=== PATIENT | female | born 1995 | race Caucasian/White ===

== ENCOUNTER → 2016-12-07 | Outpatient (CLI) | payer OTHER | END | disposition home or self-care (01) | LOC: LABWHC1 16:21 | PROVIDERS: ATTEND Obstetrics & Gynecology | DX: N91.2 Amenorrhea, unspecified (principal) | CPT/HCPCS: 36415; 84702 ==

== ENCOUNTER → 2018-06-07 | Outpatient (CLI) | payer OTHER ==
--- NOTE | 2018-06-07 17:17 | BD ---
EXAMINATION TYPE: Axial Bone Density DATE OF EXAM: 06/07/2018 COMPARISON: NONE CLINICAL HISTORY: 22-year-old female screening for osteoporosis Height: 61.5 IN Weight: 112 LBS FRAX RISK QUESTIONS: Current Tobacco Use: YES RISK FACTORS HISTORY OF: Active: YES Take estrogen and/or progesterone medications: PT TAKES DEPO SHOTS How lon YEARS MEDICATIONS: Additional Medications: NONE EXAM MEASUREMENTS: Bone mineral densitometry was performed using the [email or web address] System. Bone mineral density as measured about the Lumbar spine is: ----- L1-L4(G/cm2): 1.171 T Score Values are as follows: ----- L2: -0.1 ----- L3: -0.1 ----- L4: -0.2 ----- L1-L4: -0.1 Bone mineral density BASELINE Bone mineral density about the R hip (g/cm2):0.881 Bone mineral density about the L hip (g/cm2): 0.881 T Score values are as follows: -----R Neck: -1.1 -----L Neck: -1.1 -----R Total: -0.8 -----L Total: -0.9 Bone mineral density BASELINE IMPRESSION: Z score values are utilized given patient's age. Z score values greater than -2 indicate expected debi ne mineral density for patient's age. NOTE: T-SCORE=SD OF THE YOUNG ADULT MEAN.
== END | disposition home or self-care (01) ==
LOC: RADBDWWP 16:18
PROVIDERS: ATTEND Obstetrics & Gynecology
DX: Z13.820 Encounter for screening for osteoporosis (principal); M81.0 Age-related osteoporosis without current pathological fracture; D50.9 Iron deficiency anemia, unspecified; Z78.9 Other specified health status
CPT/HCPCS: 77080

== ENCOUNTER 2019-12-31 21:38 | Emergency (ER) | payer OTHER ==
[2019-12-31 21:47] VITALS: RESP 18
[2019-12-31] MEDS ORDERED: ONDANSETRON 4 MG/2 ML VIAL IVP STA (22:21)
[2019-12-31] MEDS ORDERED: SODIUM CHLORIDE 0.9% 1,000 ML IV STA (22:21)
[2019-12-31] MEDS ORDERED: diphenhydrAMINE 50 MG/ML 1 ML VIAL IVP STA (22:21)
[2019-12-31] MEDS ORDERED: KETOROLAC 30 MG/ML 1 ML VIAL IVP STA (22:21)
--- NOTE | 2019-12-31 22:56 | ED ---
Headache HPI - General Chief Complaint: Headache Stated Complaint: Migraine Time Seen by Provider: 12/31/19 21:52 Mode of arrival: ambulatory Limitations: no limitations - History of Present Illness Initial Comments: Patient is a 24-year-old female, with past medical history of migraines, presenting to the emergency Department with complaints of a headache that started approximately 11:30 this morning. Patient states she has tried to take naproxen as well as Motrin for her headache but her symptoms have been worsening. She admits to photophobia as well as nausea. She denies fever, chills, dizziness, blurry vision. She denies any numbness and tingling into her upper or lower extremities. She states this feels similar to her previous migraines. She has no other complaints at this time. Upon arrival to the ER her vital signs are stable. - Related Data Home Medications Medication Instructions Recorded Confirmed Citalopram Hydrobromide [CeleXA] 40 mg PO DAILY 07/24/15 07/25/15 Allergies Allergy/AdvReac Type Severity Reaction Status Date / Time No Known Allergies Allergy Verified 12/31/19 21:45 Review of Systems ROS Statement: Those systems with pertinent positive or pertinent negative responses have been documented in the HPI. ROS Other: All systems not noted in ROS Statement are negative. Past Medical History Past Medical History: Asthma Additional Past Medical History / Comment(s): HX MIGRAINE History of Any Multi-Drug Resistant Organisms: None Reported Past Surgical History: No Surgical Hx Reported Additional Past Surgical History / Comment(s): tubes placed in ears at ages [age],and 2 Past Anesthesia/Blood Transfusion Reactions: No Reported Reaction Past Psychological History: Depression Smoking Status: Current every day smoker Past Alcohol Use History: Rare Past Drug Use History: None Reported - Past Family History Mother Family Medical History: Cancer, Respiratory Disorder Additional Family Medical History / Comment(s): melanoma, emphysema, cervical cancer General Exam - General Exam Comments Initial Comments: GENERAL: Well-appearing, well-nourished and in no acute distress. HEAD: Atraumatic, normocephalic. EYES: Pupils equal round and reactive to light, extraocular movements intact, sclera anicteric, conjunctiva are normal. Photophobic ENT: TMs normal, nares patent, oropharynx clear without exudates. Moist mucous membranes. NECK: Normal range of motion, supple without lymphadenopathy or JVD. LUNGS: Breath sounds clear to auscultation bilaterally and equal. No wheezes rales or rhonchi. HEART: Regular rate and rhythm without murmurs, rubs or gallops. ABDOMEN: Soft, nontender, normoactive bowel sounds. No guarding, no rebound. No masses appreciated. : Deferred EXTREMITIES: Normal range of motion, no pitting or edema. No clubbing or cyanosis. Strength is 5 out of 5 upper and lower extremities. NEUROLOGICAL: Cranial nerves II through XII grossly intact. Normal speech, normal gait. PSYCH: Normal mood, normal affect. SKIN: Warm, Dry, normal turgor, no rashes or lesions noted. Limitations: no limitations Course Vital Signs 12/31/19 21:45 Temperature 90 F L Pulse Rate 100 Respiratory 18 Rate Blood Pressure 116/74 O2 Sat by Pulse 100 Oximetry Medical Decision Making - Medical Decision Making Patient is a 24-year-old female presenting with a migraine has been going on since this morning. She has a history of migraines and she states this feels similar. There is been no trauma. Vital signs are stable. Her exam is unremarkable. There are no red flag symptoms. Patient was given fluids, Toradol, Zofran, Benadryl. Patient states only mild improvement in her symptoms. Patient was given morphine and states her pain is typically improved. Patient is stable for discharge at this time. Patient will be given a work note. Patient will follow back up with her PCP. Return parameters were discussed with the patient and she verbalized understanding. Disposition Clinical Impression: Migraine headache Disposition: HOME SELF-CARE Condition: Stable Instructions (If sedation given, give patient instructions): Acute Headache (ED) Additional Instructions: Please return to the Emergency Department if symptoms worsen or any other concerns. Increase fluid intake, rest. Follow-up with PCP. Is patient prescribed a controlled substance at d/c from ED?: No Referrals: Mohit Chang MD [Primary Care Provider] - 1-2 days
[2019-12-31] MEDS ORDERED: MORPHINE SULFATE 4 MG/ML SYRINGE IVP STA (23:31)
[2020-01-01 00:13] VITALS: BP 110/63; PULSE 76; TEMP 98
== END 2020-01-01 00:15 | disposition home or self-care (01) ==
LOC: EC 21:38
DX: G43.909 Migraine, unspecified, not intractable, without status migrainosus (principal); F32.9 Major depressive disorder, single episode, unspecified; F17.200 Nicotine dependence, unspecified, uncomplicated; Z79.899 Other long term (current) drug therapy
CPT/HCPCS: 99283; 96374; 96375 ×3; 96361; J2270; J1200; J2405; J1885

== ENCOUNTER 2021-10-02 08:29 | Emergency (ER) | payer OTHER ==
[2021-10-02] MEDS ORDERED: ACETAMINOPHEN TAB 325 MG TAB PO STA (09:15)
[2021-10-02] MEDS ORDERED: ONDANSETRON ODT 4 MG TAB PO STA (09:15)
[2021-10-02] MEDS ORDERED: IBUPROFEN 600 MG TAB PO STA (09:15)
[2021-10-02] MEDS ORDERED: ONDANSETRON 4 MG ODT STARTER PACK 2 TAB BTL PO STA (09:50)
--- NOTE | 2021-10-02 09:51 | ED ---
General Adult HPI - General Chief complaint: Headache Stated complaint: sore throat, diarrhea Time Seen by Provider: 10/02/21 08:34 Source: patient, RN notes reviewed Mode of arrival: ambulatory Limitations: no limitations - History of Present Illness Initial comments: This a 18-year-old female presents emergency Department with chief complaint of generalized not feeling well. Patient states she's had cough congestion bodyaches headache diarrhea. Patient states symptoms started overnight. Patient states her kids are sick at home. Patient isn't taking recent Tylenol Motrin. No neck pain or neck stiffness. Patient offers no other complaints. - Related Data Home Medications Medication Instructions Recorded Confirmed Citalopram Hydrobromide [CeleXA] 40 mg PO DAILY 07/24/15 07/25/15 Allergies Allergy/AdvReac Type Severity Reaction Status Date / Time No Known Allergies Allergy Verified 10/02/21 08:35 Review of Systems ROS Statement: Those systems with pertinent positive or pertinent negative responses have been documented in the HPI. ROS Other: All systems not noted in ROS Statement are negative. Past Medical History Past Medical History: Asthma Additional Past Medical History / Comment(s): HX MIGRAINE History of Any Multi-Drug Resistant Organisms: None Reported Past Surgical History: No Surgical Hx Reported Additional Past Surgical History / Comment(s): tubes placed in ears at ages [age],and 2 Past Anesthesia/Blood Transfusion Reactions: No Reported Reaction Past Psychological History: Depression Smoking Status: Current every day smoker Past Alcohol Use History: Occasional Past Drug Use History: Marijuana - Past Family History Mother Family Medical History: Cancer, Respiratory Disorder Additional Family Medical History / Comment(s): melanoma, emphysema, cervical cancer General Exam Limitations: no limitations General appearance: alert, in no apparent distress Head exam: Present: atraumatic, normocephalic, normal inspection Eye exam: Present: normal appearance, PERRL, EOMI. Absent: scleral icterus, conjunctival injection, periorbital swelling ENT exam: Present: normal exam, normal oropharynx, mucous membranes moist Neck exam: Present: normal inspection, full ROM. Absent: tenderness, meningismus, lymphadenopathy Respiratory exam: Present: normal lung sounds bilaterally. Absent: respiratory distress, wheezes, rales, rhonchi, stridor Cardiovascular Exam: Present: regular rate, normal rhythm, normal heart sounds. Absent: systolic murmur, diastolic murmur, rubs, gallop, clicks GI/Abdominal exam: Present: soft, normal bowel sounds. Absent: distended, tenderness, guarding, rebound, rigid Course Vital Signs 10/02/21 08:31 Temperature 99.2 F Pulse Rate 95 Respiratory 18 Rate Blood Pressure 113/72 O2 Sat by Pulse 96 Oximetry Medical Decision Making - Medical Decision Making Patient is negative for covid 19. Patient is a viral upper extremity infection. Patient be discharged in stable condition return parameters were discussed. - Lab Data Lab Results 10/02/21 Range/Units 08:37 Coronavirus (PCR) Not Detected (Not Detectd) Disposition Clinical Impression: Upper respiratory infection Disposition: HOME SELF-CARE Condition: Stable Instructions (If sedation given, give patient instructions): Upper Respiratory Infection (ED) Additional Instructions: Please return to the Emergency Department if symptoms worsen or any other concerns. Is patient prescribed a controlled substance at d/c from ED?: No Referrals: Jayesh Ramirez Jr, [Primary Care Provider] - 1-2 days Time of Disposition: 09:50
[2021-10-02 10:37] VITALS: BP 129/72; PULSE 79; RESP 20; TEMP 98.9
== END 2021-10-02 10:11 | disposition home or self-care (01) ==
LOC: EC 08:29
DX: J06.9 Acute upper respiratory infection, unspecified (principal); J45.909 Unspecified asthma, uncomplicated; G43.909 Migraine, unspecified, not intractable, without status migrainosus; F32.A Depression, unspecified; F17.200 Nicotine dependence, unspecified, uncomplicated; F12.90 Cannabis use, unspecified, uncomplicated; Z72.89 Other problems related to lifestyle
CPT/HCPCS: 87635; 99284; S0119

== ENCOUNTER → 2022-02-17 | Outpatient (CLI) | payer OTHER ==
[2022-02-18 10:13] LABS: HLA B27 NEGATIVE
== END | disposition home or self-care (01) ==
LOC: LABWHC1 11:32
PROVIDERS: ATTEND Ophthalmology
DX: H44.139 Sympathetic uveitis, unspecified eye (principal)
CPT/HCPCS: 36415; 85549; 86140; 86812

== ENCOUNTER 2022-09-16 21:46 | Emergency (ER) | payer OTHER ==
[2022-09-16 21:50] VITALS: BP 118/78; PULSE 86; RESP 20; TEMP 98.7
[2022-09-16] MEDS ORDERED: AMOXICILLIN 500 MG CAP PO STA (21:59)
[2022-09-16] MEDS ORDERED: ACETAMINOPHEN TAB 500 MG TAB PO STA (22:00)
[2022-09-16] MEDS ORDERED: IBUPROFEN 600 MG TAB PO STA (22:00)
--- NOTE | 2022-09-16 22:03 | ED ---
ENT HPI - General Chief complaint: ENT Stated complaint: earache Time Seen by Provider: 09/16/22 21:54 Source: patient, RN notes reviewed Mode of arrival: ambulatory Limitations: no limitations - History of Present Illness Initial comments: Patient has had upper respiratory symptoms for one to 2 weeks. Patient states she's also has sinus congestion. Patient states she was coughing yesterday and developed right ear pain. Patient complaining of aching pain to the right ear. No alleviating factors. No drainage. Patient has had no known fever. No immunosuppression. Patient states she was recently diagnosed with bronchitis. No headache, no fever or chills, no changes in vision or hearing, no sore throat or difficulty with speech, no neck pain, no chest pain or shortness of breath, no abdominal pain, no nausea or vomiting, no changes in urination or bowel movements, no numbness or tingling, no extremity pain, no skin rashes or lesions. Past medical, surgical, social, and family history reviewed. - Related Data Home Medications Medication Instructions Recorded Confirmed Escitalopram Oxalate [Lexapro] 10 mg PO DAILY 10/02/21 10/02/21 Medroxyprogesterone Acetate 150 mg IM Q90D 10/02/21 10/02/21 [Depo-Provera] Propranolol HCl [Inderal Xl] 80 mg PO DAILY 10/02/21 10/02/21 Previous Rx's Medication Instructions Recorded Acetaminophen Tab [Tylenol Tab] 500 mg PO Q6H PRN #24 tablet 09/16/22 Amoxicillin 500 mg PO Q8H #30 capsule 09/16/22 Ibuprofen [Motrin] 600 mg PO Q8HR PRN #30 tab 09/16/22 Allergies Allergy/AdvReac Type Severity Reaction Status Date / Time No Known Allergies Allergy Verified 10/02/21 09:55 Review of Systems ROS Statement: Those systems with pertinent positive or pertinent negative responses have been documented in the HPI. ROS Other: All systems not noted in ROS Statement are negative. Past Medical History Past Medical History: Asthma Additional Past Medical History / Comment(s): HX MIGRAINE History of Any Multi-Drug Resistant Organisms: None Reported Past Surgical History: No Surgical Hx Reported Additional Past Surgical History / Comment(s): tubes placed in ears at ages [age],and 2 Past Anesthesia/Blood Transfusion Reactions: No Reported Reaction Past Psychological History: Depression Smoking Status: Current every day smoker Past Alcohol Use History: Occasional Past Drug Use History: Marijuana - Past Family History Mother Family Medical History: Cancer, Respiratory Disorder Additional Family Medical History / Comment(s): melanoma, emphysema, cervical cancer General Exam - General Exam Comments Initial Comments: Patient does not appear to be ill or toxic. Vital signs reviewed. Adequate capillary refill. No mottling Limitations: no limitations General appearance: alert, in distress (Mild secondary to right ear pain) Head exam: Present: atraumatic, normocephalic, normal inspection Eye exam: Present: normal appearance, PERRL, EOMI. Absent: scleral icterus, conjunctival injection, periorbital swelling ENT exam: Present: normal exam, mucous membranes moist Expanded Ear exam: Present: normal external inspection TM/Canal exam: Erythema: Right TM, Effusion: Right TM, Perforation: Right TM, Loss of Landmarks: Right TM Mouth exam: Present: normal external inspection, tongue normal. Absent: drooling, trismus, muffled voice, tongue elevation, laceration Throat exam: normal inspection. negative: tonsillar erythema, tonsillomegaly, tonsillar exudate, R peritonsillar mass, L peritonsillar mass Neck exam: Present: normal inspection, full ROM. Absent: tenderness, meningismus, lymphadenopathy Respiratory exam: Present: normal lung sounds bilaterally. Absent: respiratory distress, wheezes, rales, rhonchi, stridor, chest wall tenderness, accessory muscle use, decreased breath sounds, prolonged expiratory Cardiovascular Exam: Present: regular rate, normal rhythm, normal heart sounds. Absent: systolic murmur, diastolic murmur, rubs, gallop, clicks GI/Abdominal exam: Present: soft, normal bowel sounds. Absent: distended, tenderness, guarding, rebound, rigid Extremities exam: Present: normal inspection, full ROM, normal capillary refill. Absent: tenderness, pedal edema, joint swelling, calf tenderness Back exam: Present: normal inspection Neurological exam: Present: alert, oriented X3, CN II-XII intact Psychiatric exam: Present: normal affect, normal mood Skin exam: Present: warm, dry, intact, normal color. Absent: rash Course Vital Signs 09/16/22 21:47 Temperature 98.7 F Pulse Rate 86 Respiratory 20 Rate Blood Pressure 118/78 O2 Sat by Pulse 100 Oximetry Medical Decision Making - Medical Decision Making Clinical findings consistent with right otitis media with small perforation.suspect the patient had barotrauma when she had the coughing yesterday. We'll treat with antibiotics. Impression/ibuprofen. Follow-up with regular physician. Patient voiced understanding. Patient was told to return to the ER for any signs or symptoms worsen. Told to return immediately if any other problems arise. All questions answered. Treatment plan discussed. Patient in agreement Every effort has been made to ensure accuracy of this dictation. However, due to the limitations of electronic medical records and dictation devices, errors in charting still occur. Supervising Dr. Tenorio Disposition Clinical Impression: Acute otitis media of right ear with perforation Disposition: HOME SELF-CARE Condition: Good Instructions (If sedation given, give patient instructions): Ear Infection (ED) Additional Instructions: Take antibiotics as directed. Use [id number] acetaminophen and/or ibuprofen for pain control. Follow-up with your regular physician as directed. Return to the ER immediately if any symptoms worsen, new symptoms arise, or any other problems develop. Prescriptions: Amoxicillin 500 mg PO Q8H #30 capsule Ibuprofen [Motrin] 600 mg PO Q8HR PRN #30 tab PRN Reason: Pain Acetaminophen Tab [Tylenol Tab] 500 mg PO Q6H PRN #24 tablet PRN Reason: Pain Is patient prescribed a controlled substance at d/c from ED?: No Referrals: Jayesh Ramirez Jr, DO [Primary Care Provider] - 09/21/22 Time of Disposition: 22:03
== END 2022-09-16 22:28 | disposition home or self-care (01) ==
LOC: EC 21:46
DX: H66.011 Acute suppurative otitis media with spontaneous rupture of ear drum, right ear (principal); J45.909 Unspecified asthma, uncomplicated; F32.A Depression, unspecified; F17.200 Nicotine dependence, unspecified, uncomplicated; F12.90 Cannabis use, unspecified, uncomplicated; Z79.899 Other long term (current) drug therapy
CPT/HCPCS: 99283

== ENCOUNTER 2024-05-12 09:42 | Emergency (ER) | payer OTHER ==
[2024-05-12 09:50] VITALS: RESP 18
[2024-05-12] MEDS: LIDOCAINE 1% INJ 10MG/ML (20 ML MDV) SQ ONE (10:25)
--- NOTE | 2024-05-12 10:34 | ED ---
Skin/Abscess/FB HPI - General Chief complaint: Skin/Abscess/Foreign Body Stated complaint: L Arm Abscess Time Seen by Provider: 05/12/24 10:00 Source: patient, RN notes reviewed Mode of arrival: ambulatory Limitations: no limitations - History of Present Illness Initial comments: 28-year-old female with no significant past medical history presenting with abscess on left axilla x 4 days. States there is a painful red bump that has been growing in size and increasing in pain. She has never had this before. Denies history of diabetes. Denies trauma or injury. Denies fever, chills, vomiting. She is tolerating orals well. - Related Data Home Medications Medication Instructions Recorded Confirmed Escitalopram Oxalate [Lexapro] 10 mg PO DAILY 10/02/21 10/02/21 Medroxyprogesterone Acetate 150 mg IM Q90D 10/02/21 10/02/21 [Depo-Provera] Propranolol HCl [Inderal Xl] 80 mg PO DAILY 10/02/21 10/02/21 Previous Rx's Medication Instructions Recorded Acetaminophen Tab [Tylenol Tab] 500 mg PO Q6H PRN #24 tablet 09/16/22 Amoxicillin 500 mg PO Q8H #30 capsule 09/16/22 Ibuprofen [Motrin] 600 mg PO Q8HR PRN #30 tab 09/16/22 Cephalexin [Keflex] 500 mg PO Q6HR 7 Days #28 cap 05/12/24 Sulfamethox-Tmp 800-160Mg [Bactrim 1 each PO Q12HR 7 Days #14 tab 05/12/24 Ds] Allergies Allergy/AdvReac Type Severity Reaction Status Date / Time No Known Allergies Allergy Verified 05/12/24 09:50 Review of Systems ROS Statement: Those systems with pertinent positive or pertinent negative responses have been documented in the HPI. ROS Other: All systems not noted in ROS Statement are negative. Past Medical History Past Medical History: Asthma Additional Past Medical History / Comment(s): HX MIGRAINE History of Any Multi-Drug Resistant Organisms: None Reported Past Surgical History: No Surgical Hx Reported Additional Past Surgical History / Comment(s): tubes placed in ears at ages [age],and 2 Past Anesthesia/Blood Transfusion Reactions: No Reported Reaction Past Psychological History: Depression Smoking Status: Current every day smoker, Vaper Past Alcohol Use History: Occasional Past Drug Use History: Marijuana - Past Family History Mother Family Medical History: Cancer, Respiratory Disorder Additional Family Medical History / Comment(s): melanoma, emphysema, cervical cancer General Exam Limitations: no limitations General appearance: alert, in no apparent distress Head exam: Present: atraumatic, normocephalic, normal inspection Eye exam: Present: normal appearance, PERRL, EOMI. Absent: scleral icterus, conjunctival injection, periorbital swelling ENT exam: Present: normal exam, mucous membranes moist Neck exam: Present: normal inspection. Absent: tenderness, meningismus, lymphadenopathy Respiratory exam: Present: normal lung sounds bilaterally. Absent: respiratory distress, wheezes, rales, rhonchi, stridor Cardiovascular Exam: Present: regular rate, normal rhythm, normal heart sounds. Absent: systolic murmur, diastolic murmur, rubs, gallop, clicks Left General: Present: other (3 x 3 cm fluctuant, erythematous mass present on left axilla. No drainage present. + TTP.) Shoulder Exam: Present: normal inspection, full ROM. Absent: tenderness, swelling Upper Arm exam: Present: normal inspection, full ROM. Absent: tenderness, swelling Elbow exam: Present: normal inspection, full ROM. Absent: tenderness, swelling Forearm Wrist exam: Present: normal inspection, full ROM. Absent: tenderness, swelling Hand Wrist exam: Present: normal inspection, full ROM. Absent: tenderness, swelling Course Vital Signs 05/12/24 09:48 Temperature 98.1 F Pulse Rate 90 Respiratory 18 Rate Blood Pressure 132/83 O2 Sat by Pulse 99 Oximetry Procedures - Incision & Drainage Consent Obtained: verbal consent Indication: Abscess Site: other (Left axilla) Size (cm): 3 Sterile Field Used?: Yes Scalpel Used: #11 Needle Aspiration Performed?: No I&D Drainage Obtained: Pus, Blood Insertion of drain: No Culture Obtained?: No Patient Tolerated Procedure: well, no complications (Neurovascularly intact status post procedure) Medical Decision Making - Medical Decision Making Was pt. sent in by a medical professional or institution (, PA, VIRTUAL OFFICE ASSISTANT, urgent care, hospital, or usp...) When possible be specific @ -No Did you speak to anyone other than the patient for history (EMS, parent, family, police, friend...)? What history was obtained from this source @ -No Did you review nursing and triage notes (agree or disagree)? Why? @ -I reviewed and agree with nursing and triage notes Were old charts reviewed (outside hosp., previous admission, EMS record, old EKG, old radiological studies, urgent care reports/EKG's, usp records)? Report findings @ -No old charts were reviewed Differential Diagnosis (chest pain, altered mental status, abdominal pain women, abdominal pain men, vaginal bleeding, weakness, fever, dyspnea, syncope, headache, dizziness, GI bleed, back pain, seizure, CVA, palpatations, mental health, musculoskeletal)? @ -Differential Musculoskeletal Abscess, cellulitis, muscular strain, contusion, ligament sprain, fracture, arthritis, septic arthritis, bursitis, muscle spasm, nerve compression, DVT, arterial occlusion, herpes zoster, electrolyte abnormality, tumor.... This is not meant to be in all inclusive list EKG interpreted by me (3pts min.). @ -None X-rays interpreted by me (1pt min.). @ -None done CT interpreted by me (1pt min.). @ -None done U/S interpreted by me (1pt. min.). @ -None done What testing was considered but not performed or refused? (CT, X-rays, U/S, labs)? Why? @ -None What meds were considered but not given or refused? Why? @ -None Did you discuss the management of the patient with other professionals (professionals i.e. , PA, VIRTUAL OFFICE ASSISTANT, lab, RT, psych nurse, social service agency director, intellectual property lawyer, teacher, correctional officer chief, residential case manager)? Give summary @ -No Was smoking cessation discussed for >3mins.? @ -No Was critical care preformed (if so, how long)? @ -No Were there social determinants of health that impacted care today? How? (Homelessness, low income, unemployed, alcoholism, drug addiction, transportation, low edu. Level, literacy, decrease access to med. care, usp, rehab)? @ -No Was there de-escalation of care discussed even if they declined (Discuss DNR or withdrawal of care, Hospice)? DNR status @ -No What co-morbidities impacted this encounter? (DM, HTN, Smoking, COPD, CAD, Cancer, CVA, ARF, Chemo, Hep., AIDS, mental health diagnosis, sleep apnea, morbid obesity)? @ -None Was patient admitted / discharged? Hospital course, mention meds given and route, prescriptions, significant lab abnormalities, going to OR and other [facility] [place] info. @ -Patient was discharged. Patient was seen and evaluated for abscess on the left axilla x 4 days. No red flag symptoms. Patient is afebrile, nontachycardic. Neurovascularly intact. On physical examination there is a 3 x 3 cm fluctuant mass on left axilla. I&D was successfully performed with no complications. Supportive care discussed. Advised warm compresses to affected area 3 times daily. Prescribed Keflex and Bactrim. Strict return/alarm symptoms discussed with patient in detail and she shows understanding and agrees with plan. Case discussed with my attending Dr. Weiner. Patient was discharged in stable condition. Undiagnosed new problem with uncertain prognosis? @ -No Drug Therapy requiring intensive monitoring for toxicity (Heparin, Nitro, Insulin, Cardizem)? @ -No Were any procedures done? @ -I&D was performed Diagnosis/symptom? @ -Abscess of left axilla Acute, or Chronic, or Acute on Chronic? @ -Acute Uncomplicated (without systemic symptoms) or Complicated (systemic symptoms)? @ -Uncomplicated Side effects of treatment? @ -No Exacerbation, Progression, or Severe Exacerbation? @ -No Poses a threat to life or bodily function? How? (Chest pain, USA, [place], pneumonia, PE, COPD, DKA, ARF, appy, cholecystitis, CVA, Diverticulitis, Homicidal, Suicidal, threat to staff... and all critical care pts) @ -Unlikely at this time Disposition Clinical Impression: Abscess of left axilla Disposition: HOME SELF-CARE Condition: Stable Instructions (If sedation given, give patient instructions): Abscess Incision and Drainage (ED) Additional Instructions: Please use warm compresses to affected area 3 times daily. Take Keflex and Bactrim as prescribed. Take ibuprofen/Tylenol for pain as needed. Please return to the Emergency Department if symptoms worsen or any other concerns. Prescriptions: Sulfamethox-Tmp 800-160Mg [Bactrim Ds] 1 each PO Q12HR 7 Days #14 tab Cephalexin [Keflex] 500 mg PO Q6HR 7 Days #28 cap Is patient prescribed a controlled substance at d/c from ED?: No Referrals: Jayesh Ramirez Jr, [Primary Care Provider] - 1-2 days Time of Disposition: :29
[2024-05-12 12:28] VITALS: BP 113/73; PULSE 74; TEMP 97.9
== END 2024-05-12 11:45 | disposition home or self-care (01) ==
LOC: EC 09:42
DX: L02.412 Cutaneous abscess of left axilla (principal); F17.290 Nicotine dependence, other tobacco product, uncomplicated
CPT/HCPCS: 99282; 10060; J2001

== ENCOUNTER → 2024-07-19 | Outpatient (CLI) | payer OTHER ==
--- NOTE | 2024-07-19 10:28 | US ---
EXAMINATION TYPE: US abdomen complete DATE OF EXAM: 07/19/2024 COMPARISON: CT abdomen and pelvis 07/01/2014 CLINICAL INDICATION: Female, 29 years old with history of E80.7 DISORDER OF BILIRUBIN; Disorder of bi lirubin metabolism. Pain in abdomen x 1 month. TECHNIQUE: Multiple sonographic images of the abdomen are obtained. FINDINGS: EXAM MEASUREMENTS: Liver Length: 14.9 cm Gallbladder Wall: 0.19 cm CBD: 0.28 cm Spleen: 9.6 cm Right Kidney: 10.8 x 5.4 x 3.8 cm Left Kidney: 11.0 x 5.3 x 5.0 cm CUE WORKER NOTES: Exam is limited due to gas. Pancreas: No abnormalities seen. Liver: Appears wnl Gallbladder: Appears anechoic. Evidence for sonographic Small's sign: No CBD: Appears wnl Spleen: Appears wnl Right Kidney: No hydronephrosis or masses seen Left Kidney: No hydronephrosis or masses seen Upper IVC: Appears wnl Abd Aorta: Appears wnl, slightly limited visibility of mid-distal due to gas. The visualized portions of the pancreas unremarkable. Liver appears within normal limits without foca l lesion. No gallbladder wall thickening, surrounding fluid, or shadowing calculi. Negative sonograph ic Small sign. Common bile duct appears within normal limits. Spleen is unremarkable. The visualized portions of the upper IVC and abdominal aorta are within normal limits. No hydronephrosis, shadowing renal calculi, or solid renal masses identified. IMPRESSION: No ultrasound evidence for an acute process.
== END | disposition home or self-care (01) ==
LOC: RADUSWWP 07:03
PROVIDERS: ATTEND Family Medicine
DX: E80.7 Disorder of bilirubin metabolism, unspecified (principal)
CPT/HCPCS: 76700

== ENCOUNTER → 2024-07-28 | Outpatient (CLI) | payer OTHER ==
[2024-07-28 20:04] LABS: Basophils # (A) 0.03 X 10*3/uL (0.00-0.10); Basophils % (A) 0.6 %; Eosinophils # (A) 0.05 X 10*3/uL (0.04-0.35); HCT 43.2 % (37.2-46.3); HGB 14.5 g/dL (12.0-15.0); Lymphocytes # (A) 1.38 X 10*3/uL (0.90-5.00); Lymphocytes % (A) 26.7 %; MCH 33.3 pg (27.0-32.0); MCHC 33.6 g/dL (32.0-37.0); MCV 99.3 FL (80.0-97.0); Mean Platelet Volume 10.7 FL (9.5-12.2); Monocytes # (A) 0.37 X 10*3/uL (0.20-1.00); Monocytes % (A) 7.2 %; NRBC Per 100 WBC 0 X 10*3/uL (0.00-0.01); Neutrophils # (A) 3.33 X 10*3/uL (1.80-7.70); Neutrophils % (A) 64.3 %; Platelet Count 178 X 10*3/uL (140-440); RBC 4.35 X 10*6/uL (4.10-5.20); RDW 12.1 % (11.5-14.5); WBC 5.17 X 10*3/uL (4.50-10.00)
[2024-07-28 20:11] LABS: ALT 18 U/L (8-44); AST 16 U/L (13-35); Albumin 4.6 g/dL (3.8-4.9); Albumin/Globulin Ratio 1.92 Ratio (1.60-3.17); Alkaline Phosphatase 68 U/L (41-126); BUN/Creat Ratio 8.43 Ratio (12.00-20.00); Blood Urea Nitrogen 5.9 mg/dL (9.0-27.0); Calcium 9.9 mg/dL (8.7-10.3); Carbon Dioxide 25.8 mmol/L (21.6-31.8); Chloride 109 mmol/L (96-109); Globulin 2.4 g/dL (1.6-3.3); Glucose 107 mg/dL (70-110); Potassium 4.6 mmol/L (3.5-5.5); Sodium 144 mmol/L (135-145); Total Bilirubin 0.9 mg/dL (0.3-1.2)
== END | disposition home or self-care (01) ==
LOC: LABWHC1 12:09
PROVIDERS: ATTEND Family Medicine
DX: B02.29 Other postherpetic nervous system involvement (principal); L30.8 Other specified dermatitis; B02.8 Zoster with other complications
CPT/HCPCS: 36415; 80053; 85025

== ENCOUNTER → 2024-09-15 | Outpatient (CLI) | payer OTHER ==
--- NOTE | 2024-09-15 09:27 | NM ---
EXAMINATION TYPE: NM hepatobiliary w EF DATE OF EXAM: 09/15/2024 COMPARISON: NONE CLINICAL INDICATION: Female, 29 years old with history of R10.64 ABD PAIN; TECHNIQUE: DOSAGE: The patient received 8 0z Ensure plus and 5.2 mCi of Technetium 99m Choletec. FINDINGS: There is normal hepatic extraction. The gallbladder is seen by 10 minutes. There is bilia ry to bowel clearance by 40 minutes. Ejection fraction is 81%. IMPRESSION: 1. Normal hepatobiliary exam [facility] Jose Blair, , 09/15/2024 9:25 AM
== END | disposition home or self-care (01) ==
LOC: RADNMMAIN 06:56
PROVIDERS: ATTEND Family Medicine
DX: R10.84 Generalized abdominal pain (principal)
CPT/HCPCS: 78226; A9537

== ENCOUNTER 2025-01-05 09:09 | Day surgery (SDC) | payer OTHER ==
[2025-01-03 14:00] VITALS: BMI 21.7
[~2025-01-05 09:09] MED LIST: LACTATED RINGERS 1,000 ML IV SCH
[2025-01-05] MEDS: LACTATED RINGERS 1,000 ML IV ONE (09:44)
[2025-01-05 09:47] VITALS: TEMP 98.3
[2025-01-05] MEDS ORDERED: PROPOFOL 10 MG/ML 20 ML VIAL IV ONE (10:03)
--- NOTE | 2025-01-05 10:13 | P.PCN ---
Date of Procedure: 01/05/25 Procedure(s) Performed: BRIEF HISTORY: Patient is a 29-year-old, pleasant, white female as a part evaluation of chronic epigastric pain for the last 7 years duration.. PROCEDURE PERFORMED: Esophagogastroduodenoscopy with biopsy PREOPERATIVE DIAGNOSIS: Chronic epigastric pain. IV sedation per anesthesia. PROCEDURE: After informed consent was obtained, the patient was brought into the endoscopy unit. IV sedation was administered by Anesthesia under continuous monitoring. Initially the Olympus GIF-140 video endoscope was inserted into the mouth. Esophagus intubated without any difficulty. It was gradually advanced into the stomach and duodenum and carefully examined. The bulb and the second part of the duodenum appeared normal. Biopsies were done from the duodenum to rule out celiac disease. The scope at this time was withdrawn to the stomach, adequately insufflated with air, and upon careful examination, mucosa of the antrum, the mucosa consistent with gastritis and biopsies were done from this area. Mucosa of the body, cardia and the fundus appeared normal. The scope was then withdrawn into the esophagus. The GE junction was located at 39 cm from the incisors. Small hiatal hernia noted. The esophagus appeared normal. There were no erosions or ulcerations seen, biopsies were done from the distal esophagus and the patient tolerated the procedure well. IMPRESSION: 1. Mild antral gastritis. 2. Small hiatal hernia. RECOMMENDATIONS: The findings of this examination were discussed with the patient as well as her family. She was advised to follow-up with the biopsy results. Continue with her current medications and follow up in the office in 2 to 3 weeks.
[2025-01-05 10:24] VITALS: RESP 16
[2025-01-05 10:41] VITALS: BP 109/71; PULSE 70
== END 2025-01-05 11:03 | disposition home or self-care (01) ==
LOC: ORWHC2ENDO 09:09
PROVIDERS: ATTEND Internal Medicine Gastroenterology
DX: K29.50 Unspecified chronic gastritis without bleeding (principal); K20.90 Esophagitis, unspecified without bleeding; K44.9 Diaphragmatic hernia without obstruction or gangrene
CPT/HCPCS: 81025; 43239; J2704; 88305

== ENCOUNTER 2025-06-08 17:03 | Emergency (ER) | payer OTHER ==
[2025-06-08 17:08] VITALS: BP 112/73; PULSE 94; RESP 18; TEMP 98.8
--- NOTE | 2025-06-08 17:55 | ED ---
Skin/Abscess/FB HPI - General Chief complaint: Skin/Abscess/Foreign Body Stated complaint: urogenital Time Seen by Provider: 06/08/25 17:11 Source: patient, RN notes reviewed Mode of arrival: ambulatory Limitations: no limitations - History of Present Illness Initial comments: 29-year-old female presenting to emergency department for complaints of a left labial possible abscess. She states that this area is been present over the past 2 to 3 days and is concerned that she may have a ingrown hair. She states that there has been no drainage from the area. She denies vaginal discharge, odor, dysuria, hematuria, increased urinary frequency or urgency. Denies history or chance of STIs or STDs. Denies chance of . Denies recent antibiotic use. States that she has been trying sitz bath's at home. - Related Data Home Medications Medication Instructions Recorded Confirmed Medroxyprogesterone Acetate 150 mg IM Q90D 10/02/21 01/03/25 [Depo-Provera] Previous Rx's Medication Instructions Recorded Amoxic-Pot Clav 875-125Mg 1 tab PO Q12HR #20 tab 06/08/25 [Augmentin 875-125] Sulfamethox-Tmp 800-160Mg [Bactrim 1 each PO Q12HR #20 tab 06/08/25 Ds] Allergies Allergy/AdvReac Type Severity Reaction Status Date / Time butalbital AdvReac Nausea & Verified 06/08/25 17:09 Vomiting topiramate [From Topamax] AdvReac Nausea Verified 06/08/25 17:09 Review of Systems ROS Statement: Those systems with pertinent positive or pertinent negative responses have been documented in the HPI. ROS Other: All systems not noted in ROS Statement are negative. Past Medical History Past Medical History: Asthma Additional Past Medical History / Comment(s): HX MIGRAINE History of Any Multi-Drug Resistant Organisms: None Reported Past Surgical History: No Surgical Hx Reported Additional Past Surgical History / Comment(s): tubes placed in ears at ages [age],and 2 Past Anesthesia/Blood Transfusion Reactions: No Reported Reaction Additional Past Anesthesia/Blood Transfusion Reaction / Comment(s): no blood transfusion Past Psychological History: Depression Smoking Status: Current every day smoker, Vaper Past Alcohol Use History: None Reported Past Drug Use History: Marijuana - Past Family History Mother Family Medical History: Cancer, Respiratory Disorder Additional Family Medical History / Comment(s): melanoma, emphysema, cervical cancer Father Family Medical History: Deep Vein Thrombosis (DVT) General Exam Limitations: no limitations Neck exam: Present: normal inspection. Absent: tenderness, meningismus, lymphadenopathy Respiratory exam: Present: normal lung sounds bilaterally. Absent: respiratory distress, wheezes, rales, rhonchi, stridor Cardiovascular Exam: Present: regular rate, normal rhythm, normal heart sounds. Absent: systolic murmur, diastolic murmur, rubs, gallop, clicks GI/Abdominal exam: Present: soft, normal bowel sounds. Absent: distended, tenderness, guarding, rebound, rigid External exam: Present: erythema, swelling (left labia majora abscess 2 cm in diameter) Extremities exam: Present: normal inspection, full ROM, normal capillary refill. Absent: tenderness, pedal edema, joint swelling, calf tenderness Back exam: Present: normal inspection Neurological exam: Present: alert, oriented X3, CN II-XII intact Course Vital Signs 06/08/25 17:06 Temperature 98.8 F Pulse Rate 94 Respiratory 18 Rate Blood Pressure 112/73 O2 Sat by Pulse 98 Oximetry Procedures - Incision & Drainage Consent Obtained: verbal consent Site: vulva/vagina Size (cm): 2 Anesthetic Used: lidocaine 1% Amount (mLs): 3 I&D Cleaning Method: Chloroprep Scalpel Used: #11 I&D Drainage Obtained: Pus, Blood Insertion of drain: No Culture Obtained?: No Patient Tolerated Procedure: well, no complications Medical Decision Making - Medical Decision Making Was pt. sent in by a medical professional or institution (, PA, PLUNGER MACHINE OPERATOR, urgent care, hospital, or [facility]...) When possible be specific @ -No Did you speak to anyone other than the patient for history (EMS, parent, family, police, friend...)? What history was obtained from this source @ -No Did you review nursing and triage notes (agree or disagree)? Why? @ -I reviewed and agree with nursing and triage notes Were old charts reviewed (outside hosp., previous admission, EMS record, old EKG, old radiological studies, urgent care reports/EKG's, [facility] records)? Report findings @ -No old charts were reviewed Differential Diagnosis (chest pain, altered mental status, abdominal pain women, abdominal pain men, vaginal bleeding, weakness, fever, dyspnea, syncope, headache, dizziness, GI bleed, back pain, seizure, CVA, palpatations, mental health, musculoskeletal)? @ -Abscess, Bartholin cyst, STI, this also is not all-inclusive EKG interpreted by me (3pts min.). @ -None X-rays interpreted by me (1pt min.). @ -None done CT interpreted by me (1pt min.). @ -None done U/S interpreted by me (1pt. min.). @ -None done What testing was considered but not performed or refused? (CT, X-rays, U/S, labs)? Why? @ -None What meds were considered but not given or refused? Why? @ -None Did you discuss the management of the patient with other professionals (professionals i.e. , PA, PLUNGER MACHINE OPERATOR, lab, RT, psych nurse, social welfare research worker, building maintenance engineer, teacher, special officer, case fitter)? Give summary @ -No Was smoking cessation discussed for >3mins.? @ -No Was critical care preformed (if so, how long)? @ -No Were there social determinants of health that impacted care today? How? (Homelessness, low income, unemployed, alcoholism, drug addiction, transportation, low edu. Level, literacy, decrease access to med. care, nursing home, rehab)? @ -No Was there de-escalation of care discussed even if they declined (Discuss DNR or withdrawal of care, Hospice)? DNR status @ -No What co-morbidities impacted this encounter? (DM, HTN, Smoking, COPD, CAD, Cancer, CVA, ARF, Chemo, Hep., AIDS, mental health diagnosis, sleep apnea, morbid obesity)? @ -None Was patient admitted / discharged? Hospital course, mention meds given and route, prescriptions, significant lab abnormalities, going to OR and other pertinent info. @ -Discharge. 29-year-old female presenting with abscess to the left labial majora. There is noted 2 cm fluctuant indurated area with no drainage. Area was cleansed with ChloraPrep and anesthetized with local lidocaine. 11 blade was used to incise the area with purulent and blood drainage. Patient is provided with Rocephin and outpatient prescription for Augmentin and Bactrim and instructed to continue warm compresses at home to follow-up with gynecology. Return parameters discussed. Case discussed with Dr. Tenorio Undiagnosed new problem with uncertain prognosis? @ -No Drug Therapy requiring intensive monitoring for toxicity (Heparin, Nitro, Insulin, Cardizem)? @ -No Were any procedures done? @ -incision and drainage of abscess Diagnosis/symptom? @ -abscess of labia Acute, or Chronic, or Acute on Chronic? @ -acute Uncomplicated (without systemic symptoms) or Complicated (systemic symptoms)? @ -uncomplicated Side effects of treatment? @ -No Exacerbation, Progression, or Severe Exacerbation? @ -No Poses a threat to life or bodily function? How? (Chest pain, USA, [place], pneumonia, PE, COPD, DKA, ARF, appy, cholecystitis, CVA, Diverticulitis, Homicidal, Suicidal, threat to staff... and all critical care pts) @ -No Disposition Clinical Impression: Abscess of labia majora Disposition: HOME SELF-CARE Condition: Good Instructions (If sedation given, give patient instructions): Abscess Incision and Drainage (ED) Additional Instructions: Please return to the Emergency Department if symptoms worsen or any other concerns. Please complete full course of both antibiotics as prescribed. Continue warm compresses over the affected area and sitz bath's. Prescriptions: Amoxic-Pot Clav 875-125Mg [Augmentin 875-125] 1 tab PO Q12HR #20 tab Sulfamethox-Tmp 800-160Mg [Bactrim Ds] 1 each PO Q12HR #20 tab Is patient prescribed a controlled substance at d/c from ED?: No Referrals: Jayesh Ramirez Jr, DO [Primary Care Provider] - 1-2 days Time of Disposition: 18:11
[2025-06-08] MEDS: cefTRIAXone 1,000 MG VIAL (IM USE) IM STA (18:35)
[2025-06-08] MEDS: LIDOCAINE 1% INJ 10MG/ML (20 ML MDV) SQ ONE (18:37)
== END 2025-06-08 18:49 | disposition home or self-care (01) ==
LOC: EC 17:03
DX: N76.4 Abscess of vulva (principal); F17.290 Nicotine dependence, other tobacco product, uncomplicated; Z88.8 Allergy status to other drugs, medicaments and biological substances
CPT/HCPCS: 99282; 10060; 96372; J2003; J0696